=== PATIENT | female | born 1960 | race Caucasian/White ===

== ENCOUNTER → 2018-03-13 | Outpatient (CLI) | payer BC ==
--- NOTE | 2018-03-13 09:38 | CT ---
EXAM DESCRIPTION: Head CLINICAL HISTORY: MIGRAINE COMPARISON: None available TECHNIQUE: Contiguous axial images through the head were obtained without intravenous contrast administration. Sagittal and coronal reconstructions were reviewed. FINDINGS: Old lacunar infarct is noted in the right basal ganglia. Calcifications are identified in the bilateral basal ganglia as well. No evidence of acute major vascular territorial infarct or intraparenchymal hemorrhage. No intra-axial or extra-axial fluid collections are identified. The ventricles and cisterns appear normal in caliber. The sella and suprasellar regions appear normal. The structures of the posterior fossa are intact. The globes are intact bilaterally. The visualized paranasal sinuses and mastoid air cells are well-aerated. Review of the bones demonstrates no gross instability. IMPRESSION: 1. No CT evidence of acute intracranial process. This exam was performed according to our departmental dose-optimization program, which includes automated exposure control, adjustment of the mA and/or kV according to patient size and/or use of iterative reconstruction technique. Electronically signed by: Fausto Liang MD 03/13/2018 9:37 AM CDT
== END ==
LOC: CT 08:00
PROVIDERS: ATTEND Emergency Medicine
DX: G43.909 Migraine, unspecified, not intractable, without status migrainosus (principal)

== ENCOUNTER → 2018-05-29 | Outpatient (CLI) | payer BC ==
--- NOTE | 2018-05-30 09:05 | MRI ---
EXAM DESCRIPTION: Brain w/wo Contrast CLINICAL HISTORY: 58 years Female, MINERALOCORTICOID DEFICIENCY COMPARISON: CT head 03/13/2018. TECHNIQUE: Multiplanar, multisequence images of the pituitary gland without and with intravenous contrast. FINDINGS: Pituitary gland, infundibulum: The pituitary is normal in contour, size and signal with homogeneous enhancement. Pituitary gland measures no greater than 4 mm anechoic in height. The infundibular stalk is midline and normal. Parasellar structures including optic chiasm: The optic chiasm and parasellar structures are normal. Visualized paranasal sinuses: The visualized paranasal sinuses are clear. Osseous structures: Normal. Brain findings: Mild generalized cerebral volume loss. There is no pathologic enhancement of the brain parenchyma or meninges. There are no focal masses or abnormal extra-axial fluid collections. Scattered FLAIR hyperintensities within the cerebral hemispheres likely representing chronic microangiopathy. IMPRESSION: 1. Unremarkable pre and postcontrast MRI of the pituitary. 2. Senescent changes. Electronically signed by: Tim Chen MD 05/30/2018 9:03 AM [facility]
== END ==
LOC: MRI 14:31
PROVIDERS: ATTEND Internal Medicine Endocrinology, Diabetes & Metabolism
DX: G43.909 Migraine, unspecified, not intractable, without status migrainosus (principal)